=== PATIENT | female | born 1970 | race Caucasian/White ===

== ENCOUNTER → 2018-01-07 | Outpatient (CLI) | payer BC | LOC: MAMMO 08:26 | DX: Z12.31 Encounter for screening mammogram for malignant neoplasm of breast (principal) ==

== ENCOUNTER → 2020-10-17 | Outpatient (CLI) | payer BC | LOC: MAMMO 10:39 | DX: Z12.31 Encounter for screening mammogram for malignant neoplasm of breast (principal) ==

== ENCOUNTER → 2021-12-18 | Outpatient (CLI) | payer BC | LOC: MAMMO 15:52 | DX: Z12.31 Encounter for screening mammogram for malignant neoplasm of breast (principal) ==

== ENCOUNTER → 2023-01-16 | Outpatient (CLI) | payer OTHER, BC | LOC: MAMMO 09:56 | DX: Z12.31 Encounter for screening mammogram for malignant neoplasm of breast (principal) ==

== ENCOUNTER → 2025-02-02 | Outpatient (CLI) | payer BC | LOC: MAMMO 11:44 | DX: Z12.31 Encounter for screening mammogram for malignant neoplasm of breast (principal) ==